=== PATIENT | male | born 1955 | race Caucasian/White ===

== ENCOUNTER 2018-04-19 03:44 | Emergency (ER) | payer SELFPAY ==
[~2018-04-19 03:44] MED LIST: ACET-1966 PO; ACET500T68 PO; ARTHRITIS TYLENOL; AUG500 PO; BISM262T88 PO; CEP500 PO; CEPH500T7 PO; CLI150 PO; CLIN300C99 PO; CYC10 PO; CYCL10TA29 PO; DIA5 PO; DICL-195 PO; DIPH-740 PO; ENO30I SC; HYDR-3503 PO; HYDR-4225 PO; HYDR-653 PO; IBU600 PO; IBUP-1687 PO; IBUP800T37 PO; KET10 PO; LIS10 PO; LISI-362 PO; LOPE1LIQ49 PO; LOR10/500 PO; LOR5 PO; LOR5/325 PO; LOR7.5/325 PO; MICO30CR TP; NAPR220C12 PO; NEBI10TA4 PO; OMEP-218 PO; PEN250 PO; PENI-24 PO; PRED20TA6 PO; TRAM-627 PO; TRIA15OI20 TP
--- NOTE | 2018-04-19 03:50 | ER Report ---
History and Physical Time Seen By MD: 03:49 HPI/ROS CHIEF COMPLAINT: Back pain, depression HISTORY OF PRESENT ILLNESS: 62-year-old male presents ambulatory to the ER complaining of back pain. He points to the left flank area. He states he's had kidney stones in the past and this feels different. He's been having back pain for 4-5 days. He describes it sharp 8/10, aggravated by movement. He notes no hematuria. He's had no fever or chills. He's had no nausea or vomiting. He notes no change in bowel habits such as diarrhea, constipation or blood in his stools. Patient denies any new activity or lifting injury. He notes no radiation of pain into his lower extremities. REVIEW OF SYSTEMS: Respiratory: No cough, no dyspnea. Cardiovascular: No chest pain, no palpitations. Gastrointestinal: No vomiting, no abdominal pain. Musculoskeletal: As above Allergies: Coded Allergies: Penicillins (Verified Allergy, Intermediate, RASH, 04/19/18) latex (Verified Allergy, Mild, rash, 04/19/18) propoxyphene (Verified Allergy, Mild, RASH, 04/19/18) oxycodone (Verified Allergy, Unknown, 04/19/18) Home Meds Active Scripts Hydrocodone Bit/Acetaminophen (HYDROCODON-ACETAMINOPHEN 5-325) 1 Each Tablet, 1 EACH PO Q4-6H PRN for PAIN, #12 TAKE ONE TABLET BY MOUTH EVERY 4-6 HOURS NEEDED FOR PAIN Prov:LOU CASH DO 04/19/18 Citalopram Hydrobromide (CELEXA) 10 Mg Tablet, 10 MG PO QDAY for depression, #30 TAB Prov:LOU CASH DO 04/19/18 Cyclobenzaprine Hcl (CYCLOBENZAPRINE HCL) 10 Mg Tablet, 10 MG PO TID PRN for muscle spasm relief, #12 TAB Prov:LOU CASH DO 04/19/18 Reported Medications Omeprazole (OMEPRAZOLE) 20 Mg Tablet.dr, 20 MG PO QDAY, TAB 04/19/18 Ibuprofen (IBUPROFEN) 800 Mg Tablet, 1 TAB PO Q8H, TAB 04/19/18 Discontinued Reported Medications Naproxen Sodium (ALEVE) 220 Mg Capsule, 220 MG PO PRN, CAPSULE 04/07/16 Acetaminophen (TYLENOL EXTRA STRENGTH) 500 Mg Tablet, 1000 MG PO, TAB 04/07/16 Lisinopril (LISINOPRIL) 10 Mg Tablet, 10 MG PO QDAY, TAB 06/17/15 Discontinued Scripts Hydrocodone Bit/Acetaminophen (NORCO 5-325 TABLET) 1 Each Tablet, 1 EACH PO Q4- 6H PRN for PAIN, #15 TAB Prov:KIRK CAPPS DO 12/12/16 Past Medical/Surgical History Pmhx: hypertension, reflux, arthritis, fractures, back pain, alcohol use. Psxh: of a left index finger amputation, left tib-fib, right knee surgery. Reviewed Nurses Notes: Yes Old Medical Records Reviewed: Yes Hx Smoking: Yes (1/2PPD) Smoking Status: Current: Every Day Smoker, Heavy Tobacco Smoker Exposure to Second Hand Smoke?: No Hx Substance Use Disorder: No Hx Alcohol Use: Yes (occ) Constitutional Vital Sign - Last 24 Hours 04/19/18 04/19/18 04/19/18 04/19/18 03:49 03:59 04:00 04:29 Pulse 90 92 88 Resp 24 B/P (MAP) 178/105 171/108 (129) Pulse Ox 92 91 87 O2 Delivery Room Air 04/19/18 04:30 B/P (MAP) 133/92 (106) Physical Exam Vital signs stable, pulse ox normal General Appearance: The patient is alert, has no immediate need for airway protection and no current signs of toxicity. Mild distress, skin warm, dry, pi nk, alert and oriented HEENT: Pupils equal and round no injection. Oropharynx without erythema or redness, numerous teeth are missing Respiratory: Chest is non tender, lungs are clear to auscultation. No wheezing or rails Cardiac: regular rate and rhythm Gastrointestinal: Abdomen is soft and non tender, no masses, bowel sounds normal. Musculoskeletal: Neck: Neck is supple and non tender. Back:, Palpation of the back reveals some tenderness in the left paraspinous musculature, no CVA tenderness, no tenderness in the midline, no tenderness over palpation of the SI joints. Extremities have full range of motion and are non tender. Skin: No rashes or lesions. DIFFERENTIAL DIAGNOSIS: After history and physical exam differential diagnosis was considered for back pain including but not limited to muscular pain, herniated disc, spine fracture, intra-abdominal causes and urinary tract inf ection. Medical Decision Making ED Course/Re-evaluation ED Course Patient was admitted to an examination room. H&P was done. The differential diagnoses was considered. On clinical examination. Patient has a nonfocal neurologic examination. There is no straight leg raise. There is no CVA tenderness. Patient refuses to give a urinalysis, he states he just urinated prior to coming. Patient notes aggravated pain with movement. Patient clinically has lumbar strain based on his aggravation with movement. Patient be treated conservatively. He is given a limited supply of Lortab for temporary pain relief. He is given cyclobenzaprine as a muscle relaxant. He is advised to continue on ibuprofen. He's advised to follow-up with primary care if unimproved. Patient expressing depressive symptoms over numerous stressors. He is a in hospice in [place] dying of liver failure. His mother is that advanced dementia who he cares for. He'll be started on Celexa 10 mg per day. He is advised to follow-up with primary care for a refill of the medication. He is given a 30 day supply. Decision to Disposition Date: Apr 19, 2018 Decision to Disposition Time: 04:20 Depart Departure Latest Vital Signs Vital Signs Date Time Temp Pulse Resp B/P (MAP) Pulse Ox O2 Delivery O2 Flow Rate FiO2 04/19/18 04:30 133/92 (106) 04/19/18 04:29 88 87 04/19/18 03:49 24 Room Air Impression: Primary Impression: Back pain Additional Impression: Depression Condition: Improved Disposition: HOME OR SELF-CARE Referrals: CARTER ROSS MD New Scripts Hydrocodone Bit/Acetaminophen (HYDROCODON-ACETAMINOPHEN 5-325) 1 Each Tablet 1 EACH PO Q4-6H PRN for PAIN, #12 TAKE ONE TABLET BY MOUTH EVERY 4-6 HOURS NEEDED FOR PAIN Prov: LOU CASH DO 04/19/18 Citalopram Hydrobromide (CELEXA) 10 Mg Tablet 10 MG PO QDAY for depression, #30 TAB Prov: LOU CASH DO 04/19/18 Cyclobenzaprine Hcl (CYCLOBENZAPRINE HCL) 10 Mg Tablet 10 MG PO TID PRN for muscle spasm relief, #12 TAB Prov: LOU CASH DO 04/19/18 Patient Instructions: Acute Low Back Pain (ED), Depression (ED) Additional Instructions: Take ibuprofen 200 mg 3 tablets 3 times a day with food Apply heating pad to your back in the affected area Follow-up with primary care if unimproved in 3-5 days Problem Qualifiers Primary Impression: Back pain Back pain location: low back pain Chronicity: acute Back pain laterality: left Sciatica presence: without sciatica Qualified Codes: M54.5 - Low back pain Additional Impression: Depression Depression Type: unspecified Qualified Codes: F32.9 - Major depressive disorder, single episode, unspecified LOU CASH DO Apr 19, 2018 03:49
[2018-04-19] MEDS ORDERED: IBUP800T37 PO (03:56)
[2018-04-19] MEDS ORDERED: OMEP-137 PO (03:57)
[2018-04-19] MEDS ORDERED: CYCL10TA29 PO (04:23)
[2018-04-19] MEDS ORDERED: CITA-155 PO (04:23)
[2018-04-19] MEDS ORDERED: LOR5/325 PO (04:26)
[2018-04-19 04:30] VITALS: BP 133/92
[2018-04-19] MEDS ORDERED: CYCLOBENZAPRINE HCL 10 MG TH PO ONE (04:30)
[2018-04-19] MEDS ORDERED: ACET/HYDROC 5/325MG TH ER ONLY 2 TAB/BOTTLE PO ONE (04:30)
== END 2018-04-19 04:39 | disposition home or self-care (01) ==
LOC: ER 03:49
DX: M54.5 Low back pain (principal); F32.9 Major depressive disorder, single episode, unspecified
CPT/HCPCS: 99283